=== PATIENT | male | born 1965 | race Caucasian/White ===

== ENCOUNTER 2018-02-17 05:58 | Observation (INO) | payer OTHER ==
--- NOTE | 2018-02-16 14:38 | PREOP HP ---
DATE OF SERVICE: 02/17/2018 HISTORY OF PRESENT ILLNESS: The patient is a pleasant 52-year-old who I am seeing with a lumbar myelogram and post-myelogram CT scan. He continues to have difficulty with back and right leg pain. The pain radiates into his right hip and buttock and into the posterolateral thigh. The problem started in summer of 2016 and has continued to slowly worsen. His pain is worse with walking and activity. He has had some relief with sitting and rest. He is taking ibuprofen. He discontinued Lyrica because it was not helpful. He has had epidural steroid injection last year with minimal relief. He did physical therapy exercises at home, which did not help. There is no problem on the left side. His back pain is moderate. PAST MEDICAL HISTORY: Hypertension, shingles, hyperlipidemia. PAST SURGICAL HISTORY: Three previous cervical surgeries anterior and posterior at , lumbar decompression and fusion L5-S1 by Dr. Flor in 2011, ACDF C7 through T1 by Dr. Flor in 2013, PCL with instrumented fusion C7 through T1 on the left in 2014. FAMILY HISTORY: Diabetes, heart disease, hypertension and spine problems. SOCIAL HISTORY: He is an anesthesiologist. . Exercises daily. There is no history of substance abuse. He has no past or present history of smoking. ALLERGIES: LATEX. CURRENT MEDICATIONS: Losartan, hydrochlorothiazide, Nexium and ibuprofen. REVIEW OF SYSTEMS: A 12-point review of systems was obtained and is noncontributory except for that mentioned above. PHYSICAL EXAMINATION: NEUROSURGERY EXAMINATION: GENERAL APPEARANCE: Alert, pleasant, no acute distress. HEAD: Normocephalic and atraumatic. SKIN: Warm and dry. MUSCULOSKELETAL: Lumbar paraspinal muscle bulk is normal, restricted range of motion of lumbar spine, [id number] tenderness of lower lumbar spine with palpation, normal range of motion of the lower extremities bilaterally. EXTREMITIES: No clubbing, cyanosis or edema. NEUROLOGIC: Alert and oriented x 3, normal recent and remote memory, strength 5/5 in bilateral lower extremities, sensory was intact to light touch in the lower extremities bilaterally, reflexes are trace and symmetric in bilateral lower extremities, positive straight leg raising on the right with right buttock and posterior thigh pain relieved by Lasegue's maneuver, negative straight leg raising on the left, normal gait. IMAGING: I reviewed a lumbar myelogram and post-myelogram CT scan. On those studies, there is evidence of a small focal right-sided sequestered disc at L4-L5 on the right, which when combined with hypertrophic facet and diffuse disk bulging is associated with significant right lateral recess and foraminal narrowing. ASSESSMENT/ PLAN: He has right-sided lateral recess and neural foraminal narrowing and right lumbar radiculopathy. L5-S1 appears to have a solid fusion and no acute process. After failed treatment with the pain clinic, my recommendation is to remove his hardware and proceed with lumbar microsurgery and microdiscectomy at L4-L5 on the right. I discussed the surgery with him. I outlined the surgery and technique. I explained the expected postoperative course. He understands. He would like to go ahead. We will make the arrangements. MALLY FLOR MD DR: TERRIE/aisha JOB#: [id number] / [id number]
[~2018-02-17] VITALS: Ht 182.9 cm; Wt 79.4 kg
[2018-02-17] VITALS (9 sets, daily range): BP systolic 107–143; BP diastolic 69–98
[~2018-02-17 05:58] MED LIST: ASCO500T2 PO; CEPH-264 PO; CHOL100013 PO; CRESTOR20 MG PO; CYCL10TA2 PO; DIAZ5TAB4 PO; ESOM40CA PO; ESOM40CA25 PO; GELATIN SPONGE SIZE 100. ONE; IBUP200T58 PO; KETOROLAC 60 MG/2 ML INJ FOR OR. ONE; LOSA1TAB22 PO; OMEG100021 PO; OXYC-327 PO; OXYC-411 PO; THROMBIN TOPICAL 20,000 UNIT SPRAY.SYRN KIT TP ONE
[2018-02-17] MEDS ORDERED: BUPIVAC MPF-EPI 0.5%-1:200000 30 ML VIAL. INJ ONE (06:00)
[2018-02-17] MEDS ORDERED: BACITRACIN 50,000 UNIT in IV NORMAL SALINE 1000ML BAG 1,000 ML IRR ONE (06:00)
[2018-02-17] MEDS ORDERED: LIDOCAINE 1% PF 2 ML VIAL. ID PRN (07:00)
[2018-02-17] MEDS ORDERED: fentaNYL PF VIAL 100 MCG/2 ML VIAL IV PRN ×3 (07:00→13:30)
[2018-02-17] MEDS ORDERED: PROCHLORPERAZINE 10 MG/2 ML VIAL. IV PRN (07:00)
[2018-02-17] MEDS ORDERED: IV RINGERS,LACTATED 1000ML 1,000 ML IV SCH (07:00)
[2018-02-17] MEDS ORDERED: HYDROmorphone 2 MG/ML VIAL IV PRN (07:00)
[2018-02-17] MEDS ORDERED: ONDANSETRON PF 4 MG/2 ML VIAL. IV PRN ×2 (07:00→13:30)
[2018-02-17] MEDS ORDERED: REMIFENTANIL 2 MG VIAL. IV ONE (07:44)
[2018-02-17] MEDS ORDERED: PHENYLEPHRINE 10 MG/ML VIAL. ONE (07:45)
[2018-02-17] MEDS ORDERED: PROPOFOL 50 ML IV ONE (07:45)
[2018-02-17] MEDS ORDERED: LIDOCAINE 2% PF Vial for OR 5 ML VIAL. ONE (07:45)
[2018-02-17] MEDS ORDERED: DEXAMETHASONE SOD PHOS 20 MG/5 ML VIAL. ONE (07:45)
[2018-02-17] MEDS ORDERED: PROPOFOL 20 ML IV ONE (07:45)
[2018-02-17] MEDS ORDERED: MIDAZOLAM HCL/PF 2 MG/2 ML VIAL. ONE (07:46)
[2018-02-17] MEDS ORDERED: fentaNYL PF VIAL 100 MCG/2 ML VIAL ONE ×2 (07:46→13:01)
[2018-02-17] MEDS ORDERED: ROCURONIUM 50 MG/5 ML VIAL. ONE (07:46)
[2018-02-17] MEDS ORDERED: ePHEDrine PF IN SALINE 50 MG/5 ML DISP.SYRIN IV ONE (09:17)
[2018-02-17] MEDS ORDERED: ONDANSETRON PF 4 MG/2 ML VIAL. ONE (11:24)
[2018-02-17] MEDS ORDERED: GLYCOPYRROLATE 1 MG/5 ML VIAL. ONE (11:25)
[2018-02-17] MEDS ORDERED: NEOSTIGMINE METHYLSULFATE 5 MG/5 ML SYRINGE. ONE (11:25)
[2018-02-17] MEDS: POTASSIUM CL 20MEQ D5-0.45NACL 1,000 ML IV SCH ×2 (13:20→22:32)
[2018-02-17] MEDS ORDERED: diazePAM 5 MG TABLET PO PRN (13:30)
[2018-02-17] MEDS ORDERED: diphenhydrAMINE 50 MG/ML VIAL IV PRN (13:30)
[2018-02-17] MEDS ORDERED: ZOLPIDEM 5 MG TABLET. PO PRN (13:30)
[2018-02-17] MEDS ORDERED: diphenhydrAMINE HCL 25 MG CAPSULE PO PRN (13:30)
[2018-02-17] MEDS ORDERED: oxyCODONE/APAP 10/325 1 TAB TABLET PO PRN ×2 (13:30)
[2018-02-17] MEDS ORDERED: MAGNESIUM HYDROXIDE 2,400 MG/30 ML ORAL.SUSP. PO PRN (13:30)
[2018-02-17] MEDS ORDERED: CALCIUM CARBONATE 500 MG TAB.CHEW PO PRN (13:30)
[2018-02-17] MEDS ORDERED: MAG HYDROX/ALUMINUM HYD/SIMETH 30 ML ORAL.SUSP PO PRN (13:30)
[2018-02-17] MEDS ORDERED: 0.9 % SODIUM CHLORIDE 10 ML DISP.SYRIN. IV PRN (13:30)
[2018-02-17] MEDS ORDERED: ACETAMINOPHEN 325 MG TABLET. PO PRN (13:30)
[2018-02-17] MEDS ORDERED: MORPHINE SULFATE 2 MG/ML VIAL. ONE (13:54)
[2018-02-17] MEDS: MORPHINE SULFATE 2 MG/ML VIAL. IV PRN ×3 (13:58→14:34)
[2018-02-17] MEDS ORDERED: MORPHINE SULFATE 4 MG/ML VIAL. ONE (14:29)
[2018-02-17] MEDS: IBUPROFEN 800 MG TABLET. PO SCH ×2 (15:15→20:47)
[2018-02-17] MEDS: IV NORMAL SALINE 1000ML BAG 1,000 ML IV SCH (15:44)
--- NOTE | 2018-02-17 15:58 | RAD ---
CT of the lumbar spine without contrast, 02/17/2018: HISTORY: BrainLab study, lumbar herniated disc Noncontrast scans were obtained with the data transferred to the operating room to aid in the patient's stereotactically guided surgery. The following findings are noted on these images: 1. There are bilateral pedicle screws at L5 and S1 attached to longitudinally oriented posterior fixation rods. The L5-S1 disc space is narrowed and appears partially fused. There is a grade 1 anterolisthesis at L5-S1. There is bilateral spondylolysis at L5. Artifacts arising from the surgical implants obscure the underlying spinal canal. There is bilateral foraminal encroachment at this level. 2. The central spinal canal at L4-5 is also poorly defined due to artifacts. There is moderate bilateral foraminal encroachment at this level. 3. There is no significant posterior disc protrusion, central spinal canal or foraminal narrowing at L1-2, L2-3 and L3-4. PQRS Compliance Statement: One or more of the following individualized dose reduction techniques were utilized for this examination: 1. Automated exposure control 2. Adjustment of the mA and/or kV according to patient size 3. Use of iterative reconstruction technique Electronically signed by: Charly Leiva MD (02/17/2018 3:55 PM) [facility]
[2018-02-17] MEDS: diazePAM 5 MG TABLET PO PRN ×2 (16:25→21:01)
[2018-02-17] MEDS: MORPHINE SULFATE/PF 30 ML IV PRN (16:36)
[2018-02-17] MEDS ORDERED: ATORVASTATIN CALCIUM 40 MG TABLET. PO SCH (21:00)
[2018-02-17] MEDS: DOCUSATE SODIUM 100 MG CAPSULE. PO SCH (21:01)
[2018-02-18] MEDS: diazePAM 5 MG TABLET PO PRN ×3 (01:27→11:13)
[2018-02-18 03:21] VITALS: BP 120/57
[2018-02-18 07:00] VITALS: BP 110/75
[2018-02-18] MEDS ORDERED: PANTOPRAZOLE 40 MG TABLET.DR. PO SCH (07:30)
[2018-02-18] MEDS: DOCUSATE SODIUM 100 MG CAPSULE. PO SCH (08:38)
[2018-02-18] MEDS: IBUPROFEN 800 MG TABLET. PO SCH (08:40)
[2018-02-18] MEDS: IV NORMAL SALINE 1000ML BAG 1,000 ML IV SCH (08:47)
[2018-02-18] MEDS: MORPHINE SULFATE/PF 30 ML IV PRN (08:55)
[2018-02-18] MEDS ORDERED: CHOLECALCIFEROL (VITAMIN D3) 1,000 UNIT TABLET PO SCH (09:00)
[2018-02-18] MEDS ORDERED: ASCORBIC ACID 500 MG TABLET PO SCH (09:00)
[2018-02-18] MEDS ORDERED: LOSARTAN POTASSIUM 50 MG TABLET. PO SCH (09:00)
[2018-02-18] MEDS ORDERED: hydroCHLOROthiazide 25 MG TABLET PO SCH (09:00)
[2018-02-18 11:00] VITALS: BP 109/64
--- NOTE | 2018-02-18 11:08 | DISCH ---
DISCHARGE INSTRUCTIONS Condition on Discharge Condition on Discharge: Stable Activity After Discharge Activity Instructions for Disc: Activity as tolerated, Avoid exertion, Other, see below Bathing Instructions: Shower-keep dressing dry Lifting Instructions after Dis: No heavy lifting, No pulling or pushing, Do not lift >10 pounds Driving Instructions after Dis: Other, see below Diet after Discharge Diet after Discharge: Regular Additional Diet Restrictions: resume home diet Wound Incision Care Wound/Incision Care: Ice to area for comfort Other wound/incision instructi: may remove dressing in 24 hrs if dry then may shower, no soaking Contacting the DREder after DC Call your doctor for: Concerns you may have Follow-Up Follow up with: Dr. Flor in 2 weeks [phone] Treatment/Equipment after DC Adaptive Equipment Issued: None MALLY FLOR MD Feb 18, 2018 11:08
[2018-02-18] MEDS ORDERED: DIAZ5TAB4 PO (11:11)
[2018-02-18] MEDS ORDERED: DOCU-109 PO (11:11)
[2018-02-18] MEDS ORDERED: OXYC10TA PO (11:11)
--- NOTE | 2018-02-21 08:15 | PATHOLOGY ---
[facility] Accession Number: [id number] . 01 Material submitted: . LUMBAR DISC AND DECOMPRESSION . 01 Clinical history: . Lumbar herniated disc with radiculopathy . 02 Diagnosis: Segments of fibrocartilaginous and adipose tissue and bone, lumbar disc and decompression: - Degenerative changes of fibrocartilaginous tissue. (JPM:hector; 02/20/2018) QMS/02/21/2018 . 02 Comment: There is no evidence of an acute inflammatory process or malignancy. . 02 Electronically signed: . Jamison Benitez MD, Pathologist NPI- [id number] . 01 Gross description: . Received in formalin labeled "Blayne Bain, lumbar disc and decompression," are several pieces of glistening, fibrous tissue measuring 2.3 x 2.8 x 0.8 cm in aggregate dimensions, containing small fragments of possible bone. The tissue submitted entirely in cassette A1, following decalcification. (TSD; 02/17/2018) TOB/TOB . 02 Pathologist provided ICD-10: M51.36 . 02 CPT . 045927, [id number] Performed at: 01 [facility] [address], [place] [id number] MD Lucas Beal MD Phone: [phone] Performed at: 02 [facility] [address] [place], [place] [id number] MD Jamison Benitez MD Phone: [phone]
--- NOTE | 2018-02-26 16:04 | OP ---
DATE OF SURGERY: 02/17/2018 PREOPERATIVE DIAGNOSES: 1. Herniated lumbar disk, L4-L5 right with right lumbar radiculopathy. 2. Previous instrumented fusion L5-S1. POSTOPERATIVE DIAGNOSES: 1. Bulging disk, L4-L5 right with compression of the right L5 root as well as foraminal disk bulging with compression of the right L4 root at L4-L5. 2. Previous instrumentation, L5-S1. OPERATION PERFORMED: 1. Removal of hardware, L5-S1. 2. A hemilaminotomy and micro decompression and diskectomy, L4-L5 right along with medial transforaminal decompression, L4-L5 right with removal of paramedian foraminal disk and decompression of the right L5 and L4 nerve roots. The operation was done with EMG monitoring, fluoroscopy, microscopic dissection. MARKETING CO OP: CASSIUS Ojeda assisted with the surgery. She assisted with the microdiskectomy as well as the closure. 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 He has had a previous instrumented fusion at L5-S1 and has done very well from that. He then developed severe intractable back and right leg pain, which on myelography demonstrates a nerve root compression on the right at L4-L5 along with posterior disk bulging in the foramen along with a possible sequestered disk fragment at L5-S1 on the right. I discussed with him surgery and the risks involved to decompress this region. He understood and he wished to go ahead. DESCRIPTION OF PROCEDURE: Following general endotracheal anesthesia, the patient was positioned prone on the Navi table. His lumbar region was prepped and draped in the standard fashion. LISSY hose and AV impulse boots were applied for DVT prophylaxis. A microscope was draped. Fluoroscopy was draped and brought in the field. Monitoring was established. Ancef 2 grams was given less than 1 hour prior to the initiation of surgery. Using fluoroscopic guidance, incision was made opening his previous incision and extending it slightly above the previous incision to include the L4-L5 region. I dissected down the skin and subcutaneous tissue, reflected the paraspinal muscles and exposed the hardware from his previous instrumented fusion at L5-S1. I loosened and removed the hardware with some difficulty in that there was considerable fusion bone, which overlaid portions of the hardware, but I drilled this material away, removed the nuts, removed the salbador and then removed the screws, covering the openings with bone wax. This then allowed me access to L4-L5 on the right. I placed a Capron micro disk retractor, brought in the microscope and the remainder of the surgery was done with the microscope using microscopic technique. Scraping away scar I exposed the edges of his lamina and I used the high speed air drill to drill down a generous hemilaminotomy. I trimmed away thickened ligamentum flavum. I performed a partial foraminotomy exposing the L5 root in the foramen. There was disk bulging beneath the root and then I worked laterally performing a medial transforaminal exposure to visualize the L4 root as it tracked laterally. I made an incision in the Kambin triangle and then I performed diskectomy with pituitary rongeurs. I performed an aggressive diskectomy and decompressed both the L5 root as well as the L4 root, and as I worked the entire region became well decompressed and the roots, which initially were lifted and compressed, were free. I explored carefully first with a blunt hook, followed by the [facility] and assured myself the region was very well decompressed. I irrigated copiously with antibiotic solution. I then removed the retractor, obtained hemostasis in the muscle and I closed the wound in layers with absorbable suture and skin was closed with 4-0 subcuticular stitch. The operation went very well and the patient was taken uneventfully to recovery room. I was quite pleased with the surgery. MALLY FLOR MD DR: TERRIE/aisha JOB#: [id number] / [id number]
== END 2018-02-18 13:45 | disposition home or self-care (01) ==
LOC: SURG 05:58 → 4 NORTH 13:20
PROVIDERS: ADMIT Neurological Surgery; ATTEND Neurological Surgery
DX: M51.16 Intervertebral disc disorders with radiculopathy, lumbar region (principal); M48.061 Spinal stenosis, lumbar region without neurogenic claudication; E78.5 Hyperlipidemia, unspecified; I10 Essential (primary) hypertension; Z82.49 Family history of ischemic heart disease and other diseases of the circulatory system; Z83.3 Family history of diabetes mellitus
CPT/HCPCS: 63030; 72131; 88304; 88311; 96374; 96375; 96376; A7015; G0378; G0379; J0690; J1100; J2001; J2250; J2270; J2405; J2704; J2710; J3010; J3490; J7030; 76000; J1885